=== PATIENT | female | born 1955 | race Caucasian/White ===

== ENCOUNTER 2016-09-29 16:55 | Emergency (ER) | payer BC | END 2016-09-29 19:17 | disposition home or self-care (01) | DX: S93.602A Unspecified sprain of left foot, initial encounter (principal); X58.XXXA Exposure to other specified factors, initial encounter; Z86.711 Personal history of pulmonary embolism; Z86.718 Personal history of other venous thrombosis and embolism; Z79.82 Long term (current) use of aspirin ==

== ENCOUNTER 2016-11-13 14:27 | Outpatient (CLI) | payer BC | END 2016-11-13 14:28 | disposition home or self-care (01) | DX: M89.8X7 Other specified disorders of bone, ankle and foot (principal) ==

== ENCOUNTER 2016-11-25 15:32 | Outpatient (CLI) | payer BC | END 2016-11-25 15:33 | disposition home or self-care (01) | DX: M19.072 Primary osteoarthritis, left ankle and foot (principal); M89.8X7 Other specified disorders of bone, ankle and foot ==

== ENCOUNTER 2016-12-11 17:14 | Outpatient (CLI) | payer BC | END 2016-12-11 17:15 | disposition home or self-care (01) | DX: M19.072 Primary osteoarthritis, left ankle and foot (principal); M84.378A Stress fracture, left toe(s), initial encounter for fracture; X58.XXXA Exposure to other specified factors, initial encounter ==

== ENCOUNTER 2017-01-04 17:44 | Emergency (ER) | payer BC ==
--- NOTE | 2017-01-04 19:28 | ED Physician Documentation ---
PD HPI LOWER EXT INJURY - Stated complaint Stated Complaint: SWOLLEN KNEE - Chief complaint Chief Complaint: Ext Problem - History obtained from History obtained from: Patient - History of Present Illness PD HPI LOW EXT INJURY LOCATION: Left, Knee Type of injury: Twist Timing - onset: Yesterday Timing - details: Abrupt onset (twisted knee as almost fell, and felt pop in knee, with swelling in knee. Hurts for flexing; feels better straight. No locking up nor giving out per se.) Improved by: Rest Worsened by: Moving, Palpating, Other (flexion and weight bearing) Associated symptoms: Weakness Contributing factors: No: Anticoagulated Review of Systems Constitutional: denies: Fever, Chills Skin: denies: Rash, Lesions Neurologic: denies: Focal weakness, Numbness PD PAST MEDICAL HISTORY - Past Medical History Cardiovascular: Deep vein thrombosis, Pulmonary embolism Respiratory: None Neuro: None Endocrine/Autoimmune: None GI: None : None HEENT: None Psych: None Musculoskeletal: Osteoarthritis Derm: None - Past Surgical History Past Surgical History: Yes Ortho: Hip replacement Cardiovascular: Vascular surgery, AAA - Present Medications Home Medications: Ambulatory Orders Medication Instructions Recorded Confirmed Calcium/Magnesium [Calcium with 1 each PO DAILY 02/02/13 12/03/15 Magnesium Tab] Metoprolol Succinate 25 mg PO BID 02/02/13 12/03/15 Multivitamin [Multivitamins] 1 each PO DAILY 02/02/13 12/03/15 Citalopram [CeleXA] 10 mg PO DAILY 02/08/13 12/03/15 Aspirin [Aspir 81] 81 mg PO DAILY 01/30/15 12/03/15 Amlodipine Besylate 5 mg PO DAILY 12/03/15 12/03/15 Lamotrigine [Lamictal] 200 mg PO DAILY 12/03/15 12/03/15 Hydrocodone/Acetaminophen [[place] 1 each PO Q6H PRN #20 tablet 01/04/17 5-325 Tablet] Naproxen [Naprosyn] 500 mg PO BID #20 tablet 01/04/17 - Allergies Allergies/Adverse Reactions: Allergies Allergy/AdvReac Type Severity Reaction Status Date / Time gluten Allergy Intermediate GI Verified 01/30/15 14:12 tomato [Tomato] Allergy Intermediate GI Verified 01/30/15 14:12 zolpidem tartrate * AdvReac Mild too Verified 01/30/15 14:12 [From Ambien] sleepy/groggy EGGPLANT Allergy Intermediate GI Uncoded 01/30/15 14:12 POTATO Allergy Intermediate GI Uncoded 01/30/15 14:12 - Social History Does the pt smoke?: No Smoking Status: Never smoker Does the pt drink ETOH?: Yes Does the pt have substance abuse?: No - Immunizations Immunizations are current?: Yes - POLST Patient has POLST: No PD ED PE NORMAL - Vitals Vital signs reviewed: Yes - General General: Alert and oriented X 3, Well developed/nourished, Other (seems in pain due to left knee. No calf tenderness. ) - HEENT HEENT: Atraumatic - Neck Neck: Supple, no meningeal sign, No bony TTP, No adenopathy - Cardiac Cardiac: RRR, No murmur - Respiratory Respiratory: Clear bilaterally - Derm Derm: Normal color, Warm and dry, No rash - Extremities Extremities: No edema, No calf tenderness / cord, Other (left knee with moderate effusion, no bony tenderness per se. Ligament testing hurts some with most motions, but no focal pain nor laxity. Walking hurts. ) - Neuro Neuro: Alert and oriented X 3, No motor deficit, No sensory deficit, Normal speech Results - Vitals Vitals: Oxygen O2 Source Room air PD MEDICAL DECISION MAKING - ED course Complexity details: considered differential (sounds likely to be meniscal. She has prior Ortho in [place], whom she will see.), d/w patient Departure - Departure Disposition: 01 Home, Self Care Clinical Impression: Knee injury Qualifiers: Encounter type: initial encounter Laterality: left Qualified Code(s): S89.92XA - Unspecified injury of left lower leg, initial encounter Condition: Stable Record reviewed to determine appropriate education?: Yes Instructions: ED Meniscal Injury Knee Poss Prescriptions: Naproxen [Naprosyn] 500 mg PO BID #20 tablet Hydrocodone/Acetaminophen [[place] 5-325 Tablet] 1 each PO Q6H PRN #20 tablet PRN Reason: Pain Comments: This sounds worrisome for cartilage/meniscal injury. There is some arthritic changes on xray but would not typically hurt that abruptly with the swelling. Naproxen or Ibuprofen twice daily for 7-10 days. Add Tylenol or hydrocodone as needed for pains. Knee brace when ambulating to support ligaments/cartilage. Follow up with your Orthopedist in [place] in about a week, call for appt. Discharge Date/Time: 01/04/17 20:28
[2017-01-04] MEDS ORDERED: HYDROcod/ACET 5/325 Prepack 6 PO ONE (19:49)
--- NOTE | 2017-01-04 19:51 | XRAY Preliminary Report ---
Exam: XR Knee 4 View LT IMPRESSION: 1. Tricompartmental osteoarthritis, most pronounced and moderate in the lateral compartment. 2. Small knee effusion. 3. No acute bony abnormality. [facility] SITE ID: [id number]
--- NOTE | 2017-01-04 19:54 | XRAY Report ---
EXAM: LEFT KNEE RADIOGRAPHY EXAM DATE: 01/04/2017 07:26 PM. CLINICAL HISTORY: Left knee swelling COMPARISON: None. TECHNIQUE: 4 views. FINDINGS: Bones: Sclerotic lesion in the distal femoral metaphysis, appearance compatible with enchondroma. No fracture. Joints: Mild to moderate tricompartmental osteophytosis, most pronounced in the lateral compartment. Moderate lateral compartment joint space loss. A small suprapatellar effusion is present. Soft Tissues: No evident focal soft tissue swelling. IMPRESSION: 1. Tricompartmental osteoarthritis, most pronounced and moderate in the lateral compartment. 2. Small knee effusion. 3. No acute bony abnormality. [facility] Referring Provider Line: [phone] SITE ID: [id number]
[2017-01-04] MEDS: HYDROcod/ACET 5/325 Prepack 6 PO ONE (20:13)
[2017-01-04 20:28] VITALS: BP 133/66
== END 2017-01-04 20:28 | disposition home or self-care (01) ==
LOC: ED 17:44
DX: S89.92XA Unspecified injury of left lower leg, initial encounter (principal); X50.0XXA Overexertion from strenuous movement or load, initial encounter; Z86.718 Personal history of other venous thrombosis and embolism; Z86.711 Personal history of pulmonary embolism; M19.90 Unspecified osteoarthritis, unspecified site; Z79.82 Long term (current) use of aspirin
CPT/HCPCS: 99283

== ENCOUNTER 2017-03-09 08:00 | Outpatient (CLI) | payer BC ==
[2017-03-09 22:04] LABS: THYROID STIMULATING HORMONE 0.4 uIU/mL (0.34-5.60)
== END 2017-03-09 08:01 | disposition home or self-care (01) ==
LOC: LAB.F 08:00
PROVIDERS: ATTEND Nurse Practitioner Family
DX: N95.1 Menopausal and female climacteric states (principal); R53.83 Other fatigue
CPT/HCPCS: 36415; 84436; 84439; 84443; 84481; 86376; 86800

== ENCOUNTER 2017-03-27 16:20 | Outpatient (CLI) | payer BC ==
--- NOTE | 2017-03-28 00:49 | XRAY Report ---
EXAM: RIGHT FOOT RADIOGRAPHY EXAM DATE: 03/27/2017 04:31 PM. CLINICAL HISTORY: PAIN. Heel pain COMPARISON: None. TECHNIQUE: 3 views. FINDINGS: Bones: Normal. No fractures or bone lesions. Joints: Mild first metatarsophalangeal osteoarthritis. No subluxations. No calcaneal bone spur. Soft Tissues: Normal. No soft tissue swelling. IMPRESSION: No acute findings. Mild first metatarsophalangeal osteoarthritis. [facility] Referring Provider Line: [phone] SITE ID: [id number]
== END 2017-03-27 16:21 | disposition home or self-care (01) ==
LOC: DI.S 16:20
PROVIDERS: ATTEND Podiatrist
DX: M79.671 Pain in right foot (principal); M19.071 Primary osteoarthritis, right ankle and foot

== ENCOUNTER 2017-04-15 17:07 | Emergency (ER) | payer BC ==
--- NOTE | 2017-04-15 19:43 | ED Physician Documentation ---
PD HPI UPPER EXT INJURY - Stated complaint Stated Complaint: R ARM PX - Chief complaint Chief Complaint: Ext Problem - History obtained from History obtained from: Patient - History of Present Illness Location: Right, Shoulder Type of injury: Other (no particular heavy use nor repetitive motion). No: Fall , Twist Timing - onset: Today Timing - details: Abrupt onset, Still present Worsened by: Moving Associated symptoms: No: Weakness, Numbness, Swelling, Discolored Similar symptoms before: Has not had sx before Recently seen: Not recently seen Review of Systems Constitutional: denies: Fever, Chills Skin: denies: Rash, Lesions PD PAST MEDICAL HISTORY - Past Medical History Cardiovascular: Hypertension, Deep vein thrombosis, Pulmonary embolism Respiratory: None Neuro: None Endocrine/Autoimmune: None GI: None : None HEENT: None Psych: None Musculoskeletal: Osteoarthritis, Fibromyalgia Derm: None Other Past Medical History: 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 - Past Surgical History Past Surgical History: Yes Ortho: Hip replacement Cardiovascular: Vascular surgery, AAA - Present Medications Home Medications: Ambulatory Orders Medication Instructions Recorded Confirmed Calcium/Magnesium [Calcium with 1 each PO DAILY 02/02/13 04/15/17 Magnesium Tab] Metoprolol Succinate 25 mg PO BID 02/02/13 04/15/17 Multivitamin [Multivitamins] 1 each PO DAILY 02/02/13 04/15/17 Citalopram [CeleXA] 60 mg PO DAILY 02/08/13 04/15/17 Aspirin [Aspir 81] 81 mg PO DAILY 01/30/15 04/15/17 Amlodipine Besylate 5 mg PO DAILY 12/03/15 04/15/17 Lamotrigine [Lamictal] 200 mg PO BID 12/03/15 04/15/17 Alprazolam 0.25 mg PO DAILY 04/15/17 04/15/17 Dexamethasone [Decadron] 4 mg PO DAILY #5 tablet 04/15/17 Oxycodone HCl/Acetaminophen 1 each PO Q6H PRN #20 tablet 04/15/17 [Percocet 5-325 mg Tablet] - Allergies Allergies/Adverse Reactions: Allergies Allergy/AdvReac Type Severity Reaction Status Date / Time gluten Allergy Intermediate GI Verified 04/15/17 18:04 tomato [Tomato] Allergy Intermediate GI Verified 04/15/17 18:04 zolpidem tartrate * AdvReac Mild too Verified 04/15/17 18:04 [From Ambien] sleepy/groggy EGGPLANT Allergy Intermediate GI Uncoded 04/15/17 17:15 - Social History Does the pt smoke?: No Smoking Status: Never smoker Does the pt drink ETOH?: Yes Does the pt have substance abuse?: No - Immunizations Immunizations are current?: Yes - POLST Patient has POLST: No PD ED PE NORMAL - Vitals Vital signs reviewed: Yes - General General: Alert and oriented X 3, Well developed/nourished, Other (guarding motion of right shoulder; pain with rotational movements in all directions. ) - HEENT HEENT: Atraumatic - Neck Neck: Supple, no meningeal sign, No adenopathy - Derm Derm: Normal color, Warm and dry, No rash - Extremities Extremities: Other (tender posterior and lateral shoulder. No redness nor warmth. No deformity. Passive ROM is also guarded. ) Results - Vitals Vitals: Oxygen O2 Source Room air PD MEDICAL DECISION MAKING - ED course Complexity details: considered differential (seems like shoulder tendonitis), d/ w patient Departure - Departure Disposition: 01 Home, Self Care Clinical Impression: Tendonitis, Right arm pain Condition: Stable Record reviewed to determine appropriate education?: Yes Instructions: Tendonitis and Tenosynovitis Follow-Up: Chino Haas ARNP [Primary Care Provider] - Prescriptions: Dexamethasone [Decadron] 4 mg PO DAILY #5 tablet Oxycodone HCl/Acetaminophen [Percocet 5-325 mg Tablet] 1 each PO Q6H PRN #20 tablet PRN Reason: Pain Comments: Sling or guarded motion of the shoulder for the next few days until improved. Dexamethasone daily as an anti-inflammatory. Add Tylenol or oxycodone as needed for pain 1-2 every 6 hours. As the pain lessens, do gentle range of motion of the shoulder to keep it from the and stiff. Recheck with primary care if not improved over the next several days. Return or recheck if other symptoms develop with it. Discharge Date/Time: 04/15/17 20:32
[2017-04-15] MEDS ORDERED: KETOROLAC 60 MG/2 ML VIAL IM STA (20:06)
[2017-04-15] MEDS ORDERED: DEXAMETHASONE 10 MG/ML VIAL PO STA (20:06)
[2017-04-15] MEDS ORDERED: KETOROLAC 60 MG/2 ML VIAL ONE (20:13)
[2017-04-15] MEDS ORDERED: DEXAMETHASONE 10 MG/ML VIAL ONE (20:13)
[2017-04-15 20:32] VITALS: BP 146/88
== END 2017-04-15 20:32 | disposition home or self-care (01) ==
LOC: ED 17:07
DX: M75.91 Shoulder lesion, unspecified, right shoulder (principal); I10 Essential (primary) hypertension; M79.7 Fibromyalgia; M19.90 Unspecified osteoarthritis, unspecified site; Z86.718 Personal history of other venous thrombosis and embolism; Z86.711 Personal history of pulmonary embolism; Z79.82 Long term (current) use of aspirin
CPT/HCPCS: 96372; 99283

== ENCOUNTER 2017-04-20 17:15 | Outpatient (CLI) | payer BC | END 2017-04-20 17:16 | disposition short-term general hospital (02) | LOC: EMS 17:15 | PROVIDERS: ATTEND Surgery | DX: R07.9 Chest pain, unspecified (principal) | CPT/HCPCS: A0425; A0427 ==

== ENCOUNTER 2017-06-11 12:39 | Outpatient (CLI) | payer BC ==
[2017-06-11 18:21] LABS: BASOPHILS % (AUTO) 0.5 %; EOSINOPHILS # (AUTO) 0.1 10^3/uL (0.0-0.7); EOSINOPHILS % (AUTO) 2.1 %; HCT - HEMATOCRIT 30.5 % (37.0-47.0); HGB - HEMOGLOBIN 10.1 g/dL (12.0-16.0); LYMPHOCYTES # (AUTO) 0.8 10^3/uL (1.5-3.5); LYMPHOCYTES % (AUTO) 12.7 %; MEAN CORPUSCULAR HGB CONC 33.1 g/dL (32.0-36.0); MEAN CORPUSCULAR VOLUME 87.6 fL (81.0-99.0); MEAN PLATELET VOLUME 8.2 fL (7.9-10.8); MONOCYTES # (AUTO) 0.4 10^3/uL (0.0-1.0); MONOCYTES % (AUTO) 6.6 %; NEUTROPHILS # (AUTO) 4.6 10^3/uL (1.5-6.6); NEUTROPHILS % (AUTO) 78.1 %; NUCLEATED RED BLOOD CELLS AUTO 0.2 /100WBC; RED BLOOD COUNT 3.48 10^6/uL (4.20-5.40); RED CELL DISTRIBUTION WIDTH 15.7 % (12.0-15.0); UNCORRECTED WHITE BLOOD COUNT 5.9 x10^3/uL; WHITE BLOOD COUNT 5.9 x10^3/uL (4.8-10.8)
[2017-06-11 18:43] LABS: ALBUMIN/GLOBULIN RATIO 1.1 (1.0-2.2); CALCIUM 8.9 mg/dL (8.5-10.3); CREATININE 0.7 mg/dL (0.4-1.0); POTASSIUM 3.9 mmol/L (3.5-5.0); TOTAL PROTEIN 6.2 g/dL (6.7-8.2)
== END 2017-06-11 12:40 | disposition home or self-care (01) ==
LOC: LAB.F 12:39
PROVIDERS: ATTEND Nurse Practitioner Family
DX: Z00.00 Encounter for general adult medical examination without abnormal findings (principal); D64.9 Anemia, unspecified; E55.9 Vitamin D deficiency, unspecified; E78.5 Hyperlipidemia, unspecified
CPT/HCPCS: 36415; 80053; 82306; 82728; 83540; 84466; 85025; 85379

== ENCOUNTER 2017-06-17 14:24 | Outpatient (CLI) | payer OTHER ==
[2017-06-17 17:56] LABS: ALBUMIN/GLOBULIN RATIO 0.9 (1.0-2.2); BILIRUBIN,TOTAL 1.8 mg/dL (0.2-1.0); CALCIUM 8.9 mg/dL (8.5-10.3); CREATININE 0.7 mg/dL (0.4-1.0); POTASSIUM 3.3 mmol/L (3.5-5.0); TOTAL PROTEIN 6.5 g/dL (6.7-8.2)
== END 2017-06-17 14:25 | disposition home or self-care (01) ==
LOC: LAB.F 14:24
PROVIDERS: ATTEND Nurse Practitioner Family
DX: R94.5 Abnormal results of liver function studies (principal)
CPT/HCPCS: 36415; 80053; 85379

== ENCOUNTER 2017-07-13 11:15 | Outpatient (CLI) | payer OTHER ==
[2017-07-13 18:51] LABS: ALBUMIN/GLOBULIN RATIO 1.2 (1.0-2.2); BILIRUBIN,TOTAL 0.5 mg/dL (0.2-1.0); CREATININE 0.8 mg/dL (0.4-1.0); POTASSIUM 4.2 mmol/L (3.5-5.0); TOTAL PROTEIN 6.8 g/dL (6.7-8.2)
== END 2017-07-13 11:16 | disposition home or self-care (01) ==
LOC: LAB.F 11:15
PROVIDERS: ATTEND Internal Medicine Cardiovascular Disease
DX: R94.5 Abnormal results of liver function studies (principal); I48.91 Unspecified atrial fibrillation
CPT/HCPCS: 36415; 80053; 82565

== ENCOUNTER 2017-08-13 12:32 | Outpatient (CLI) | payer OTHER ==
[2017-08-13 18:53] LABS: BASOPHILS % (AUTO) 0.7 %; EOSINOPHILS # (AUTO) 0.1 10^3/uL (0.0-0.7); EOSINOPHILS % (AUTO) 2.3 %; HCT - HEMATOCRIT 35.7 % (37.0-47.0); HGB - HEMOGLOBIN 11.6 g/dL (12.0-16.0); LYMPHOCYTES % (AUTO) 17.4 %; MEAN CORPUSCULAR HGB CONC 32.4 g/dL (32.0-36.0); MEAN CORPUSCULAR VOLUME 86.2 fL (81.0-99.0); MEAN PLATELET VOLUME 8.2 fL (7.9-10.8); MONOCYTES # (AUTO) 0.4 10^3/uL (0.0-1.0); MONOCYTES % (AUTO) 6.6 %; NEUTROPHILS # (AUTO) 4.3 10^3/uL (1.5-6.6); RED BLOOD COUNT 4.14 10^6/uL (4.20-5.40); RED CELL DISTRIBUTION WIDTH 15.7 % (12.0-15.0); UNCORRECTED WHITE BLOOD COUNT 5.9 x10^3/uL; WHITE BLOOD COUNT 5.9 x10^3/uL (4.8-10.8)
[2017-08-13 19:10] LABS: ALBUMIN/GLOBULIN RATIO 1.3 (1.0-2.2); BILIRUBIN,TOTAL 0.6 mg/dL (0.2-1.0); CALCIUM 9.1 mg/dL (8.5-10.3); CREATININE 0.7 mg/dL (0.4-1.0); POTASSIUM 4.3 mmol/L (3.5-5.0); TOTAL PROTEIN 6.9 g/dL (6.7-8.2)
[2017-08-13 19:15] LABS: THYROID STIMULATING HORMONE 0.58 uIU/mL (0.34-5.60)
== END 2017-08-13 12:33 | disposition home or self-care (01) ==
LOC: LAB.F 12:32
PROVIDERS: ATTEND Nurse Practitioner Family
DX: Z79.899 Other long term (current) drug therapy (principal); D63.8 Anemia in other chronic diseases classified elsewhere
CPT/HCPCS: 36415; 80053; 84436; 84439; 84443; 84481; 85025; 86376; 86800

== ENCOUNTER 2017-08-14 15:50 | Outpatient (CLI) | payer OTHER ==
[2017-08-14 18:25] LABS: INR 1.4 (0.8-1.2); PT - PROTHROMBIN TIME 15.8 secs (9.9-12.6)
[2017-08-14 18:46] LABS: ALBUMIN 3.8 g/dL (3.2-5.5); ALKALINE PHOSPHATASE 115 IU/L (42-121); ALT ALANINE AMINOTRANSFERASE 20 IU/L (10-60); AST ASPARTATE AMINOTRANSFERASE 28 IU/L (10-42); BILIRUBIN,TOTAL 0.4 mg/dL (0.2-1.0); GAMMA GLUTAMYL TRANSPEPTIDASE 24 IU/L (8-38); TOTAL PROTEIN 6.7 g/dL (6.7-8.2)
[2017-08-14 18:47] LABS: BILIRUBIN,DIRECT < 0.1 mg/dL (0.1-0.5)
== END 2017-08-14 15:51 | disposition home or self-care (01) ==
LOC: LAB.F 15:50
PROVIDERS: ATTEND Internal Medicine
DX: R79.89 Other specified abnormal findings of blood chemistry (principal)
CPT/HCPCS: 36415; 80076; 82977; 85610

== ENCOUNTER 2017-10-06 09:42 | Outpatient (CLI) | payer OTHER ==
--- NOTE | 2017-10-06 17:36 | XRAY Report ---
THREE VIEW CERVICAL SPINE: 10/06/2017 CLINICAL INDICATION: Radiculopathy. FINDINGS: AP, lateral, odontoid views of the cervical spine demonstrate moderate to severe degenerative disk and facet disease. Disk space narrowing is worst at C5-6. There is no evidence of fracture or subluxation. The prevertebral soft tissues are unremarkable. IMPRESSION: MODERATE TO SEVERE DEGENERATIVE DISK AND FACET DISEASE. TD: 10/06/2017 17:32
--- NOTE | 2017-10-06 17:37 | XRAY Report ---
THREE VIEW THORACIC SPINE: 10/06/2017 CLINICAL INDICATION: Radiculopathy, pain. FINDINGS: AP, lateral, swimmer's views of the thoracic spine were obtained. Visualization of the thoracic vertebral bodies is limited by overlying thoracic aortic stent graft. No definite fracture or subluxation is seen. Mild degenerative disk changes are noted. IMPRESSION: MILD DEGENERATIVE CHANGES. NO DEFINITE COMPRESSION FRACTURE IS IDENTIFIED. TD: 10/06/2017 17:34
== END 2017-10-06 09:43 | disposition home or self-care (01) ==
LOC: DI 09:42
PROVIDERS: ATTEND Nurse Practitioner Family
DX: M50.30 Other cervical disc degeneration, unspecified cervical region (principal); M47.892 Other spondylosis, cervical region; M51.34 Other intervertebral disc degeneration, thoracic region
CPT/HCPCS: 72040; 72070

== ENCOUNTER 2017-12-14 12:52 | Outpatient (CLI) | payer OTHER ==
[2017-12-14 18:57] LABS: BASOPHILS % (AUTO) 0.9 %; EOSINOPHILS # (AUTO) 0.1 10^3/uL (0.0-0.7); EOSINOPHILS % (AUTO) 1.7 %; HGB - HEMOGLOBIN 11.8 g/dL (12.0-16.0); LYMPHOCYTES # (AUTO) 1.3 10^3/uL (1.5-3.5); MEAN CORPUSCULAR HEMOGLOBIN 28.5 pg (27.0-31.0); MEAN CORPUSCULAR HGB CONC 32.5 g/dL (32.0-36.0); MEAN CORPUSCULAR VOLUME 87.6 fL (81.0-99.0); MEAN PLATELET VOLUME 8.3 fL (7.9-10.8); MONOCYTES # (AUTO) 0.4 10^3/uL (0.0-1.0); MONOCYTES % (AUTO) 7.9 %; NEUTROPHILS # (AUTO) 3.5 10^3/uL (1.5-6.6); NEUTROPHILS % (AUTO) 65.5 %; PLT - PLATELET COUNT 201 10^3/uL (130-450); RED BLOOD COUNT 4.14 10^6/uL (4.20-5.40); RED CELL DISTRIBUTION WIDTH 16.3 % (12.0-15.0); WHITE BLOOD COUNT 5.4 x10^3/uL (4.8-10.8)
[2017-12-14 19:00] LABS: INR 2.1 (0.8-1.2)
[2017-12-14 19:17] LABS: ALBUMIN 3.8 g/dL (3.2-5.5); ALBUMIN/GLOBULIN RATIO 1.5 (1.0-2.2); BILIRUBIN,TOTAL 0.4 mg/dL (0.2-1.0); CALCIUM 8.6 mg/dL (8.5-10.3); CREATININE 0.8 mg/dL (0.4-1.0); TOTAL PROTEIN 6.3 g/dL (6.7-8.2)
== END 2017-12-14 12:53 | disposition home or self-care (01) ==
LOC: LAB.F 12:52
PROVIDERS: ATTEND Nurse Practitioner Family
DX: R94.5 Abnormal results of liver function studies (principal); R53.82 Chronic fatigue, unspecified
CPT/HCPCS: 36415; 80053; 82977; 85025; 85610

== ENCOUNTER 2018-04-26 11:43 | Outpatient (CLI) | payer MEDICARE, BC ==
[2018-04-26 17:46] LABS: EOSINOPHILS # (AUTO) 0.2 10^3/uL (0.0-0.7); EOSINOPHILS % (AUTO) 3.3 %; HGB - HEMOGLOBIN 12.5 g/dL (12.0-16.0); LYMPHOCYTES # (AUTO) 1.5 10^3/uL (1.5-3.5); LYMPHOCYTES % (AUTO) 30.2 %; MEAN CORPUSCULAR HEMOGLOBIN 30.9 pg (27.0-31.0); MEAN CORPUSCULAR HGB CONC 34.1 g/dL (32.0-36.0); MEAN CORPUSCULAR VOLUME 90.7 fL (81.0-99.0); MEAN PLATELET VOLUME 8.3 fL (7.9-10.8); MONOCYTES # (AUTO) 0.4 10^3/uL (0.0-1.0); MONOCYTES % (AUTO) 8.3 %; NEUTROPHILS # (AUTO) 2.8 10^3/uL (1.5-6.6); NEUTROPHILS % (AUTO) 57.2 %; PLT - PLATELET COUNT 178 10^3/uL (130-450); RED BLOOD COUNT 4.05 10^6/uL (4.20-5.40); RED CELL DISTRIBUTION WIDTH 14.3 % (12.0-15.0); WHITE BLOOD COUNT 4.9 x10^3/uL (4.8-10.8)
[2018-04-26 18:56] LABS: ALBUMIN/GLOBULIN RATIO 1.7 (1.0-2.2); ALKALINE PHOSPHATASE 67 IU/L (42-121); ALT ALANINE AMINOTRANSFERASE 21 IU/L (10-60); AST ASPARTATE AMINOTRANSFERASE 24 IU/L (10-42); BILIRUBIN,TOTAL 0.9 mg/dL (0.2-1.0); BUN - BLOOD UREA NITROGEN 9 mg/dL (6-20); CALCIUM 9.2 mg/dL (8.5-10.3); CARBON DIOXIDE - CO2 26 mmol/L (21-32); CHLORIDE 101 mmol/L (101-111); CHOL/HDL RATIO 2.8 (<4.4); CHOLESTEROL 168 mg/dL; CREATININE 0.8 mg/dL (0.4-1.0); GFR - MDRD 72 (>89); GLUCOSE 85 mg/dL (70-100); HDL CHOLESTEROL 60 mg/dL; SODIUM 133 mmol/L (135-145); TOTAL PROTEIN 6.4 g/dL (6.7-8.2)
[2018-04-26 19:16] LABS: LDL CHOLESTEROL,DIRECT 95 mg/dL; LDLD/HDL RATIO 1.6 (<4.4)
== END 2018-04-26 11:44 | disposition home or self-care (01) ==
LOC: LAB.F 11:43
PROVIDERS: ATTEND Nurse Practitioner Family
DX: I70.90 Unspecified atherosclerosis (principal); Z13.220 Encounter for screening for lipoid disorders; E05.90 Thyrotoxicosis, unspecified without thyrotoxic crisis or storm; E03.9 Hypothyroidism, unspecified
CPT/HCPCS: 36415; 80053; 80061; 83721; 84443; 85025

== ENCOUNTER 2018-05-03 14:59 | Outpatient (CLI) | payer MEDICARE, BC ==
--- NOTE | 2018-05-03 17:29 | Ultrasound Report ---
Reason: VISUAL CHANGES Procedure Date: 05/03/2018 Accession Number: [id number] / [id number] Procedure: US - Carotid Doppler Complete CPT Code: FULL RESULT: EXAM: BILATERAL CAROTID AND VERTEBRAL ARTERY DUPLEX DOPPLER ULTRASOUND: EXAM DATE: 05/03/2018 03:58 PM CLINICAL HISTORY: VISUAL CHANGES. COMPARISON: None. TECHNIQUE: Grayscale imaging, color Doppler, and duplex spectral Doppler were used to evaluate the carotid and vertebral arteries bilaterally. Static images were obtained. FINDINGS: No significant plaque is identified in the right or left common or internal carotid arteries. Patient has undergone bilateral common carotid bypass grafting. There is reversal of left vertebral artery direction of flow. VELOCITIES (cm/sec): Transcription to insert worksheet here ICA diameter stenosis: Right: <50% by velocity and <70% by NASCET criteria. Left: <50% by velocity and <70% by NASCET criteria. IMPRESSION: 1. Patient has undergone bilateral common carotid bypass grafting. 2. There is no sonographic evidence of hemodynamically significant internal carotid artery stenosis. 3. There is reversal of the left vertebral artery flow, away from the head. This could represent subclavian steal secondary to severe proximal left subclavian artery stenosis. General Recommendations: Stenosis =50% ICA - Follow-up ultrasound 6-12 months Stenosis <50% ICA - High Risk Patient with plaque - Follow-up ultrasound 1-2 years Normal Study but High Risk Patient - Follow-up ultrasound 3-5 years Management recommendations and diagnostic criteria are based on current IAC endorsed standards in Carotid Artery Stenosis: Grayscale and Doppler Ultrasound Diagnosis. Validated velocity measurements with angiographic measurements and velocity criteria are extrapolated from diameter data as defined by the Society of Radiologists in Ultrasound Consensus Conference Radiology 2003; 229;340-346. [facility] The above findings were discussed with Dr Triplett by Dr. Shan Martínez at 17:28 hrs on 05/03/18.
== END 2018-05-03 15:00 | disposition home or self-care (01) ==
LOC: DI 14:59
PROVIDERS: ATTEND Nurse Practitioner Family
DX: H53.9 Unspecified visual disturbance (principal)
CPT/HCPCS: 93880

== ENCOUNTER 2018-09-09 11:09 | Outpatient (CLI) | payer MEDICARE, BC ==
[2018-09-09 18:52] LABS: CALCIUM 8.8 mg/dL (8.5-10.3); CREATININE 0.9 mg/dL (0.4-1.0)
== END 2018-09-09 11:10 | disposition home or self-care (01) ==
LOC: LAB.F 11:09
PROVIDERS: ATTEND Internal Medicine Cardiovascular Disease
DX: I71.1 Thoracic aortic aneurysm, ruptured (principal); I10 Essential (primary) hypertension
CPT/HCPCS: 36415; 80048

== ENCOUNTER 2018-09-29 13:05 | Outpatient (CLI) | payer MEDICARE, BC ==
[2018-09-29 18:20] LABS: BILIRUBIN,URINE NEGATIVE (NEGATIVE); GLUCOSE, URINE (UA) NEGATIVE (NEGATIVE); KETONES,URINE (UA) NEGATIVE (NEGATIVE); LEUKOCYTE ESTERASE, URINE NEGATIVE (NEGATIVE); NITRITE,URINE NEGATIVE (NEGATIVE); OCCULT BLOOD,URINE NEGATIVE (NEGATIVE); PROTEIN,URINE NEGATIVE (NEGATIVE); UROBILINOGEN,URINE 0.2 (NORMAL) E.U./dL (NORMAL)
[2018-09-29 18:23] LABS: CLARITY,URINE CLEAR (CLEAR)
[2018-09-29 18:32] LABS: BACTERIA,URINE None Seen /HPF (None Seen); RBC,URINE None Seen /HPF (0-5); SQUAMOUS EPITHELIAL CELL,UR NONE SEEN (<= Few)
== END 2018-09-29 23:59 | disposition home or self-care (01) ==
LOC: LAB.R 13:05
PROVIDERS: ATTEND Nurse Practitioner Family
DX: R10.2 Pelvic and perineal pain (principal)
CPT/HCPCS: 81001; 87086

== ENCOUNTER 2018-10-19 12:57 | Outpatient (CLI) | payer MEDICARE, BC ==
--- NOTE | 2018-10-20 08:21 | Ultrasound Report ---
Reason: VAGINAL PAIN Procedure Date: 10/19/2018 Accession Number: [id number] / [id number] Procedure: US - Pelvic Complete CPT Code: FULL RESULT: EXAM: PELVIC ULTRASOUND EXAM DATE: 10/19/2018 02:00 PM. CLINICAL HISTORY: Vaginal pain. COMPARISON: 10/19/2018 2:11 PM. TECHNIQUE: Real-time transabdominal pelvic scan performed to identify the uterus and adnexa and as an overview of other pelvic structures, with static image documentation. FINDINGS: Uterus: 7.7 x 2.8 x 3.7 cm, volume 41.7 cc. Anteverted position. No mass. Incidental nonshadowing 0.4 cm superior uterine echogenic focus could represent a small calcification. Masses: None. Endometrium: 3 mm. No endometrial mass or polyp. Cervix: Unremarkable. Right Ovary: 1.5 x 1.3 x 1.4 cm, volume 1.4 cc. Normal echotexture and blood flow. Left Ovary: 2.3 x 1.5 x 1.4 cm, volume 2.5 cc. Normal echotexture and blood flow. Free Fluid: None. Other: Evaluation of the adnexa is limited due to bowel gas and peristalsing bowel. IMPRESSION: 1. Mildly limited study due to peristalsing bowel and bowel gas. 2. Given the limitations, both ovaries and adnexa are normal. 3. No uterine mass. Endometrium measures 3 mm. No focal lesion. [facility]
== END 2018-10-19 12:58 | disposition home or self-care (01) ==
LOC: DI 12:57
PROVIDERS: ATTEND Nurse Practitioner Family
DX: R10.2 Pelvic and perineal pain (principal)
CPT/HCPCS: 76856

== ENCOUNTER 2018-11-18 22:23 | Outpatient (CLI) | payer MEDICARE, BC | END 2018-11-18 22:24 | disposition short-term general hospital (02) | LOC: EMS 22:23 | PROVIDERS: ATTEND Surgery | DX: R07.9 Chest pain, unspecified (principal); R06.02 Shortness of breath | CPT/HCPCS: A0425; A0427 ==

== ENCOUNTER 2019-03-24 14:58 | Outpatient (CLI) | payer MEDICARE, BC ==
--- NOTE | 2019-03-25 08:43 | DEXA Report ---
Reason: Asymptomatic menopausal state Procedure Date: 03/24/2019 Accession Number: [id number] / [id number] Procedure: DEX - Dexa Forearm CPT Code: FULL RESULT: EXAM: Dexa Spine and/or Hip, Dexa Forearm DATE: 03/24/2019 4:12 PM CLINICAL HISTORY: ASYMPTOMATIC MENOPAUSAL STATE TECHNIQUE: Dual energy x-ray absorptiometry (DXA) was performed on a [employer] System. Regions measured are the AP Spine, femoral neck, and if needed forearm. COMPARISON: None. In accordance with the International Society for Clinical Densitometry (ISCD) guidelines, data from previous exams may be reanalyzed using current recommendations and techniques. This is done to allow a more accurate basis for comparison with the current study. FINDINGS: The data for the lumbar spine is as follows: BMD (g/cm/cm) T-SCORE Z-SCORE REGION L1 0.904 -1.9 -0.6 L2 0.963 -2.0 -0.7 L3 1.126 -0.6 0.7 L4 1.101 -0.8 0.5 TOTAL 1.034 -1.2 0.1 NOTE: All evaluable vertebrae are used for classification The data for the left forearm is as follows: BMD (g/cm/cm) T-SCORE Z-SCORE REGION 1/3 0.651 -2.6 -1.1 NOTE: The 33% radius of the nondominant forearm is used for classification. DXA RESULTS SUMMARY: Spine SCAN DATE AGE BMD CHANGE VS CHANGE VS PREVIOUS PREVIOUS % [birth year]24[birth year]2019 [age] 1.034 0.003 0.3 05[birth year]2016 61.2 1.031 * Denotes significant change at the 95% confidence level. Denotes dissimilar scan types or analysis methods. DXA RESULTS SUMMARY: Forearm SCAN DATE AGE BMD CHANGE VS CHANGE VS PREVIOUS PREVIOUS % [birth year]2019 64.0 0.651 -0.092* -12.4* [birth year]2016 61.2 0.743 * Denotes significant change at the 95% confidence level. Denotes dissimilar scan types or analysis methods. IMPRESSION: THE WHO CLASSIFICATION BASED ON THE INTERNATIONAL REFERENCE STANDARD IS OSTEOPOROSIS. THE FRACTURE RISK IS HIGH. RECOMMENDATION: Patients with diagnosis of osteoporosis or osteopenia should have regular bone mineral density assessment. For those eligible for Medicare, routine testing is allowed once every 2 years. Testing frequency can be increased for patients who have rapidly progressing disease or for those who are receiving medical therapy to restore bone mass. COMMENT: World Health Organization (WHO) definitions for osteoporosis and osteopenia: NORMAL BMD: T-score at -1.0 or higher, fracture risk is low OSTEOPENIA BMD: T-score between -1.0 and -2.5, fracture risk is increased. OSTEOPOROSIS BMD: T-score at -2.5 or lower, fracture risk is high. National Osteoporosis Foundation recommends: 1. Obtain adequate dietary calcium (at least 1200 mg per day) and vitamin D (400-800 international units per day). 2. Participate, as appropriate, in regular weightbearing and muscle-strengthening exercise. 3. Avoid tobacco use and reduce alcohol and caffeine intake. 4. For more detailed information see the website at www.NOF.org.
--- NOTE | 2019-03-25 08:43 | DEXA Report ---
Reason: ASYMPTOMATIC MENOPAUSAL STATE Procedure Date: 03/24/2019 Accession Number: [id number] / [id number] Procedure: DEX - Dexa Spine and/or Hip CPT Code: FULL RESULT: EXAM: Dexa Spine and/or Hip, Dexa Forearm DATE: 03/24/2019 4:12 PM CLINICAL HISTORY: ASYMPTOMATIC MENOPAUSAL STATE TECHNIQUE: Dual energy x-ray absorptiometry (DXA) was performed on a [employer] System. Regions measured are the AP Spine, femoral neck, and if needed forearm. COMPARISON: None. In accordance with the International Society for Clinical Densitometry (ISCD) guidelines, data from previous exams may be reanalyzed using current recommendations and techniques. This is done to allow a more accurate basis for comparison with the current study. FINDINGS: The data for the lumbar spine is as follows: BMD (g/cm/cm) T-SCORE Z-SCORE REGION L1 0.904 -1.9 -0.6 L2 0.963 -2.0 -0.7 L3 1.126 -0.6 0.7 L4 1.101 -0.8 0.5 TOTAL 1.034 -1.2 0.1 NOTE: All evaluable vertebrae are used for classification The data for the left forearm is as follows: BMD (g/cm/cm) T-SCORE Z-SCORE REGION 1/3 0.651 -2.6 -1.1 NOTE: The 33% radius of the nondominant forearm is used for classification. DXA RESULTS SUMMARY: Spine SCAN DATE AGE BMD CHANGE VS CHANGE VS PREVIOUS PREVIOUS % [birth year]24/2019 64.0 1.034 0.003 0.3 [birth year]2016 61.2 1.031 * Denotes significant change at the 95% confidence level. Denotes dissimilar scan types or analysis methods. DXA RESULTS SUMMARY: Forearm SCAN DATE AGE BMD CHANGE VS CHANGE VS PREVIOUS PREVIOUS % [birth year]24/2019 64.0 0.651 -0.092* -12.4* [birth year]/2016 61.2 0.743 * Denotes significant change at the 95% confidence level. Denotes dissimilar scan types or analysis methods. IMPRESSION: THE WHO CLASSIFICATION BASED ON THE INTERNATIONAL REFERENCE STANDARD IS OSTEOPOROSIS. THE FRACTURE RISK IS HIGH. RECOMMENDATION: Patients with diagnosis of osteoporosis or osteopenia should have regular bone mineral density assessment. For those eligible for Medicare, routine testing is allowed once every 2 years. Testing frequency can be increased for patients who have rapidly progressing disease or for those who are receiving medical therapy to restore bone mass. COMMENT: World Health Organization (WHO) definitions for osteoporosis and osteopenia: NORMAL BMD: T-score at -1.0 or higher, fracture risk is low OSTEOPENIA BMD: T-score between -1.0 and -2.5, fracture risk is increased. OSTEOPOROSIS BMD: T-score at -2.5 or lower, fracture risk is high. National Osteoporosis Foundation recommends: 1. Obtain adequate dietary calcium (at least 1200 mg per day) and vitamin D (400-800 international units per day). 2. Participate, as appropriate, in regular weightbearing and muscle-strengthening exercise. 3. Avoid tobacco use and reduce alcohol and caffeine intake. 4. For more detailed information see the website at www.NOF.org.
== END 2019-03-24 14:59 | disposition home or self-care (01) ==
LOC: DI 14:58
PROVIDERS: ATTEND Family Medicine
DX: M81.0 Age-related osteoporosis without current pathological fracture (principal)
CPT/HCPCS: 77080; 77081

== ENCOUNTER 2019-05-05 08:24 | Outpatient (CLI) | payer MEDICARE, BC ==
--- NOTE | 2019-05-09 10:53 | Ultrasound Report ---
Reason: HISTORY OF REPAIR OF THORACIC AORTIC ANEURYSM Procedure Date: 05/05/2019 Accession Number: [id number] / [id number] Procedure: US - Retroperitoneal Limited CPT Code: FULL RESULT: EXAM: AORTIC DOPPLER ULTRASOUND EXAM DATE: 05/05/2019 09:30 AM. CLINICAL HISTORY: History of repair of thoracic aortic aneurysm. COMPARISON: 05/05/2019 9:34 AM. TECHNIQUE: Real-time sonographic imaging of retroperitoneal vascular structures, including color-flow, Doppler flow and spectral analysis was performed by the cafe site attendant. Multiple marketing representative static images were saved for review. FINDINGS: Aorta: Abdominal aorta is adequately visualized. This echogenic atherosclerotic disease throughout. Ultrasound appearance is that of a stent graft ending superior to the takeoff of the celiac artery. Aorta: Proximal: Sagittal AP 3.6 cm. Mid: Transverse 2.8 x 3.0 cm. Distal: Transverse 2.1 x 2.3 cm. Caliber: WNL: Yes. Plaque visualized: No. Iliacs: Right Iliac: Transverse 1.4 x 1.7 cm. Left Iliac: Transverse 1.3 x 1.4 cm. Iliac Vessels: Visualized iliac arteries are normal in caliber. Other: None. IMPRESSION: Atherosclerotic aorta with distal end of the thoracic stent graft above the celiac artery, prominent caliber of the upper abdominal aorta but no infrarenal abdominal aortic aneurysm. [facility]
== END 2019-05-05 08:25 | disposition home or self-care (01) ==
LOC: DI 08:24
PROVIDERS: ATTEND Family Medicine
DX: I70.0 Atherosclerosis of aorta (principal)
CPT/HCPCS: 76775

== ENCOUNTER 2019-05-31 14:28 | Outpatient (CLI) | payer MEDICARE, BC | END 2019-05-31 14:29 | disposition short-term general hospital (02) | LOC: EMS 14:28 | PROVIDERS: ATTEND Surgery | DX: R29.810 Facial weakness (principal); R47.81 Slurred speech; R19.8 Other specified symptoms and signs involving the digestive system and abdomen | CPT/HCPCS: A0425; A0429 ==

== ENCOUNTER 2019-09-06 14:18 | Outpatient (CLI) | payer MEDICARE, BC | END 2019-09-06 14:19 | disposition home or self-care (01) | LOC: LAB.S 14:18 | PROVIDERS: ATTEND Family Medicine | DX: Z79.01 Long term (current) use of anticoagulants (principal) | CPT/HCPCS: 85610 ==

== ENCOUNTER 2019-09-09 13:20 | Outpatient (CLI) | payer MEDICARE, BC | END 2019-09-09 13:21 | disposition home or self-care (01) | LOC: LAB.S 13:20 | PROVIDERS: ATTEND Family Medicine | DX: Z79.01 Long term (current) use of anticoagulants (principal) | CPT/HCPCS: 85610 ==

== ENCOUNTER 2019-09-12 12:46 | Outpatient (CLI) | payer MEDICARE, BC | END 2019-09-12 12:47 | disposition home or self-care (01) | LOC: LAB.S 12:46 | PROVIDERS: ATTEND Family Medicine | DX: Z79.01 Long term (current) use of anticoagulants (principal) | CPT/HCPCS: 85610 ==

== ENCOUNTER 2019-09-16 14:27 | Outpatient (CLI) | payer MEDICARE, BC | END 2019-09-16 14:28 | disposition home or self-care (01) | LOC: LAB.S 14:27 | PROVIDERS: ATTEND Family Medicine | DX: Z79.01 Long term (current) use of anticoagulants (principal) | CPT/HCPCS: 85610 ==

== ENCOUNTER 2019-09-26 12:31 | Outpatient (CLI) | payer MEDICARE, BC | END 2019-09-26 12:32 | disposition home or self-care (01) | LOC: LAB.S 12:31 | PROVIDERS: ATTEND Family Medicine | DX: Z79.01 Long term (current) use of anticoagulants (principal) | CPT/HCPCS: 85610 ==

== ENCOUNTER 2019-09-27 09:28 | Outpatient (CLI) | payer MEDICARE, BC ==
--- NOTE | 2019-09-28 10:04 | XRAY Report ---
Reason: PAIN IN LEFT KNEE Procedure Date: 09/27/2019 Accession Number: [id number] / [id number] Procedure: XRS - Knee 3 View LT CPT Code: Final Report FULL RESULT: EXAM: LEFT KNEE RADIOGRAPHY EXAM DATE: 09/27/2019 09:46 AM. CLINICAL HISTORY: Pain in left knee. COMPARISON: KNEE 4 VIEW LT 01/04/2017 7:15 PM. TECHNIQUE: 3 views. FINDINGS: Bones: No fracture. Irregular sclerotic lesion with chondroid matrix in the distal femoral metadiaphysis is unchanged from prior, most consistent with enchondroma. Joints: Mild medial and lateral compartment joint space narrowing. Tricompartmental marginal osteophytes. Small amount of fluid in the suprapatellar recess. Soft Tissues: Unremarkable. IMPRESSION: 1. Mild to moderate tricompartmental osteoarthritis. [facility]
== END 2019-09-27 09:29 | disposition home or self-care (01) ==
LOC: DI.S 09:28
PROVIDERS: ATTEND Family Medicine
DX: M17.12 Unilateral primary osteoarthritis, left knee (principal)

== ENCOUNTER 2019-10-06 10:41 | Outpatient (CLI) | payer MEDICARE, BC | END 2019-10-06 10:42 | disposition home or self-care (01) | LOC: LAB.S 10:41 | PROVIDERS: ATTEND Family Medicine | DX: Z79.01 Long term (current) use of anticoagulants (principal) | CPT/HCPCS: 85610 ==

== ENCOUNTER 2019-10-13 13:09 | Outpatient (CLI) | payer MEDICARE, BC | END 2019-10-13 13:10 | disposition home or self-care (01) | LOC: LAB.S 13:09 | PROVIDERS: ATTEND Family Medicine | DX: Z79.01 Long term (current) use of anticoagulants (principal) | CPT/HCPCS: 85610 ==

== ENCOUNTER 2019-10-20 12:29 | Outpatient (CLI) | payer MEDICARE, BC | END 2019-10-20 23:59 | disposition home or self-care (01) | LOC: LAB.S 12:29 | PROVIDERS: ATTEND Family Medicine | DX: Z79.01 Long term (current) use of anticoagulants (principal) | CPT/HCPCS: 85610 ==

== ENCOUNTER 2019-10-26 11:10 | Outpatient (CLI) | payer MEDICARE, BC | END 2019-10-26 11:11 | disposition short-term general hospital (02) | LOC: EMS 11:10 | PROVIDERS: ATTEND Surgery | DX: R09.89 Other specified symptoms and signs involving the circulatory and respiratory systems (principal); R07.9 Chest pain, unspecified | CPT/HCPCS: A0425; A0427 ==

== ENCOUNTER 2019-10-27 13:37 | Outpatient (CLI) | payer MEDICARE, BC | END 2019-10-27 13:38 | disposition home or self-care (01) | LOC: LAB.S 13:37 | PROVIDERS: ATTEND Family Medicine | DX: Z79.01 Long term (current) use of anticoagulants (principal) | CPT/HCPCS: 85610 ==

== ENCOUNTER 2019-11-07 08:00 | Outpatient (CLI) | payer MEDICARE, BC | END 2019-11-07 23:59 | disposition home or self-care (01) | LOC: LAB.S 08:00 | PROVIDERS: ATTEND Family Medicine | DX: Z79.01 Long term (current) use of anticoagulants (principal) | CPT/HCPCS: 85610 ==

== ENCOUNTER 2019-11-25 11:03 | Outpatient (CLI) | payer MEDICARE, BC ==
[2019-11-25 13:01] LABS: INR 1.4 (0.8-1.2); PT - PROTHROMBIN TIME 15.9 secs (9.9-12.6)
== END 2019-11-25 23:59 | disposition home or self-care (01) ==
LOC: LAB.WCP 11:03
PROVIDERS: ATTEND Family Medicine
DX: Z79.01 Long term (current) use of anticoagulants (principal)
CPT/HCPCS: 36415; 85610

== ENCOUNTER 2019-12-08 12:32 | Outpatient (CLI) | payer MEDICARE, BC ==
[2019-12-08 17:53] LABS: INR 2.3 (0.8-1.2); PT - PROTHROMBIN TIME 25.1 secs (9.9-12.6)
== END 2019-12-08 23:59 | disposition home or self-care (01) ==
LOC: LAB.WCP 12:32
PROVIDERS: ATTEND Family Medicine
DX: Z79.01 Long term (current) use of anticoagulants (principal)
CPT/HCPCS: 36415; 85610

== ENCOUNTER 2019-12-30 16:04 | Outpatient (CLI) | payer MEDICARE, BC | END 2019-12-30 16:05 | disposition home or self-care (01) | LOC: LAB 16:04 | PROVIDERS: ATTEND Family Medicine | DX: Z79.01 Long term (current) use of anticoagulants (principal) | CPT/HCPCS: 85610 ==

== ENCOUNTER 2020-01-17 15:36 | Outpatient (CLI) | payer MEDICARE, BC | END 2020-01-17 15:37 | disposition home or self-care (01) | LOC: LAB.S 15:36 | PROVIDERS: ATTEND Family Medicine | DX: Z79.01 Long term (current) use of anticoagulants (principal) | CPT/HCPCS: 85610 ==

== ENCOUNTER 2020-02-22 15:57 | Outpatient (CLI) | payer MEDICARE, BC | END 2020-02-22 15:58 | disposition home or self-care (01) | LOC: LAB.S 15:57 | PROVIDERS: ATTEND Family Medicine | DX: Z79.01 Long term (current) use of anticoagulants (principal) | CPT/HCPCS: 85610 ==

== ENCOUNTER 2020-03-14 11:27 | Outpatient (CLI) | payer MEDICARE, BC | END 2020-03-14 11:28 | disposition home or self-care (01) | LOC: LAB.S 11:27 | PROVIDERS: ATTEND Family Medicine | DX: Z79.01 Long term (current) use of anticoagulants (principal) | CPT/HCPCS: 85610 ==

== ENCOUNTER 2020-03-28 09:21 | Outpatient (CLI) | payer MEDICARE, BC | END 2020-03-28 09:22 | disposition home or self-care (01) | LOC: LAB.S 09:21 | PROVIDERS: ATTEND Family Medicine | DX: Z79.01 Long term (current) use of anticoagulants (principal) | CPT/HCPCS: 85610 ==

== ENCOUNTER 2020-04-18 12:25 | Outpatient (CLI) | payer MEDICARE, BC | END 2020-04-18 12:26 | disposition home or self-care (01) | LOC: LAB.S 12:25 | PROVIDERS: ATTEND Family Medicine | DX: Z79.01 Long term (current) use of anticoagulants (principal) | CPT/HCPCS: 85610 ==

== ENCOUNTER 2020-04-20 10:54 | Outpatient (CLI) | payer MEDICARE, BC ==
[2020-04-20 11:23] LABS: CALCIUM 8.7 mg/dL (8.5-10.3); CREATININE 0.8 mg/dL (0.4-1.0)
== END 2020-04-20 10:55 | disposition home or self-care (01) ==
LOC: LAB 10:54
PROVIDERS: ATTEND Internal Medicine Cardiovascular Disease
DX: I50.9 Heart failure, unspecified (principal); I48.91 Unspecified atrial fibrillation
CPT/HCPCS: 36415; 80048; 83880; 93005

== ENCOUNTER 2020-05-10 11:51 | Outpatient (CLI) | payer MEDICARE, BC ==
[2020-05-10 12:15] LABS: ALBUMIN/GLOBULIN RATIO 1.4 (1.0-2.2); CALCIUM 9.1 mg/dL (8.5-10.3); CREATININE 0.7 mg/dL (0.4-1.0); TOTAL PROTEIN 6.8 g/dL (6.7-8.2)
== END 2020-05-10 11:52 | disposition home or self-care (01) ==
LOC: LAB 11:51
PROVIDERS: ATTEND Internal Medicine Cardiovascular Disease
DX: I50.9 Heart failure, unspecified (principal)
CPT/HCPCS: 36415; 80053

== ENCOUNTER 2020-05-25 15:36 | Outpatient (CLI) | payer MEDICARE, BC | END 2020-05-25 15:37 | disposition home or self-care (01) | LOC: LAB.S 15:36 | PROVIDERS: ATTEND Family Medicine | DX: Z79.01 Long term (current) use of anticoagulants (principal) | CPT/HCPCS: 85610 ==

== ENCOUNTER 2020-07-02 15:29 | Outpatient (CLI) | payer MEDICARE, BC ==
[2020-07-02 20:07] LABS: CALCIUM 9.2 mg/dL (8.5-10.3); CREATININE 0.8 mg/dL (0.4-1.0)
== END 2020-07-02 15:30 | disposition home or self-care (01) ==
LOC: LAB.S 15:29
PROVIDERS: ATTEND Internal Medicine Cardiovascular Disease
DX: Z79.01 Long term (current) use of anticoagulants (principal); I10 Essential (primary) hypertension
CPT/HCPCS: 36415; 80048; 85610

== ENCOUNTER 2020-07-13 12:16 | Outpatient (CLI) | payer MEDICARE, BC | END 2020-07-13 12:17 | disposition home or self-care (01) | LOC: LAB.S 12:16 | PROVIDERS: ATTEND Family Medicine | DX: Z79.01 Long term (current) use of anticoagulants (principal) | CPT/HCPCS: 85610 ==

== ENCOUNTER 2020-07-24 13:26 | Outpatient (CLI) | payer MEDICARE, BC | END 2020-07-24 13:27 | disposition home or self-care (01) | LOC: LAB.S 13:26 | PROVIDERS: ATTEND Family Medicine | DX: Z79.01 Long term (current) use of anticoagulants (principal) | CPT/HCPCS: 85610 ==

== ENCOUNTER 2020-08-07 11:26 | Outpatient (CLI) | payer MEDICARE, BC | END 2020-08-07 11:27 | disposition home or self-care (01) | LOC: LAB.S 11:26 | PROVIDERS: ATTEND Family Medicine | DX: Z79.01 Long term (current) use of anticoagulants (principal) | CPT/HCPCS: 85610 ==

== ENCOUNTER 2020-08-13 14:38 | Outpatient (CLI) | payer MEDICARE, BC | END 2020-08-13 14:39 | disposition short-term general hospital (02) | LOC: EMS 14:38 | PROVIDERS: ATTEND Surgery | DX: R07.9 Chest pain, unspecified (principal) | CPT/HCPCS: A0425; A0427 ==

== ENCOUNTER 2020-10-02 14:03 | Outpatient (CLI) | payer MEDICARE, BC ==
--- NOTE | 2020-10-04 05:18 | Mammography Report ---
BILATERAL DIGITAL SCREENING MAMMOGRAM 3D/2D WITH EXAGGERATED CC: 10/02/2020 CLINICAL: Routine screening. Comparison is made to exams dated: 08/16/2014 mammogram and 10/13/2011 mammogram - [facility]. There are scattered fibroglandular elements in both breasts. No significant masses, calcifications, or other findings are seen in either breast. There has been no significant interval change. IMPRESSION: NEGATIVE There is no mammographic evidence of malignancy. A 1 year screening mammogram is recommended. This exam was interpreted at Station ID: [id number]. NOTE: For mammograms, a report in lay terms will be sent to the patient. Approximately 15% of breast malignancies will not be visualized mammographically. In the management of a palpable breast mass, a negative mammogram must not discourage biopsy of a clinically suspicious lesion. Electronically Signed By: Jerome Lacey M.D. ar/penrad:10/02/2020 14:38:02 ACR BI-RADS Category 1: Negative 3341F PARENCHYMAL PATTERN: (A) - The breast(s) demonstrate(s) scattered fibroglandular densities. BI-RADS CATEGORY: (1) - 1 RECOMMENDATION: (ANNUAL) - Recommend routine annual screening mammography. [id number] 1 year screening LATERALITY: (B)
== END 2020-10-02 14:04 | disposition home or self-care (01) ==
LOC: DI.S 14:03
PROVIDERS: ATTEND Nurse Practitioner Family
DX: Z12.31 Encounter for screening mammogram for malignant neoplasm of breast (principal)

== ENCOUNTER 2021-04-08 14:49 | Outpatient (CLI) | payer MEDICARE, BC ==
--- NOTE | 2021-04-08 15:27 | XRAY Report ---
PROCEDURE: Lumbar Spine Complete INDICATIONS: LUMBAGO WITH SCIATICA RT SIDE TECHNIQUE: 5 views of the lumbar spine were acquired. COMPARISON: Thoracic spine plain films 10/06/2017 FINDINGS: Bones: 5 hos-lnt-kydqdkq vertebrae are present. There is normal bony alignment except slight sparkle listhesis of L4 on L5 is seen on the lateral view secondary to degenerative disc height reduction, fa cet osteoarthritis and ligamentous laxity.. No vertebral body compression fractures. No suspicious bony lesions. Soft tissues: Overlying bowel gas pattern is normal. No suspicious soft tissue calcifications. A v ascular aortic stent extends from the upper imaging margin into the area of the thoracolumbar junctio n. IMPRESSION: The degenerative disc disease along the lumbosacral spine is mild to moderate in overall severity and most prominent at L4-5 and L5-S1. Facet osteoarthritis becomes progressively more promi nent from L3 through S1 in this allows ligamentous laxity and slight grade 1 anterolisthesis of L4 on L5. No compression fracture found. Reviewed by: Alonso Reid MD on 04/08/2021 3:25 PM PDT Approved by: Alonso Reid MD on 04/08/2021 3:25 PM PDT Station ID: [id number]
== END 2021-04-08 14:50 | disposition home or self-care (01) ==
LOC: DI.S 14:49
PROVIDERS: ATTEND Nurse Practitioner Family
DX: M51.36 Other intervertebral disc degeneration, lumbar region (principal); M51.37 Other intervertebral disc degeneration, lumbosacral region; M47.816 Spondylosis without myelopathy or radiculopathy, lumbar region; M47.817 Spondylosis without myelopathy or radiculopathy, lumbosacral region; M43.16 Spondylolisthesis, lumbar region

== ENCOUNTER 2021-11-13 15:05 | Outpatient (CLI) | payer MEDICARE, BC ==
--- NOTE | 2021-11-13 17:07 | XRAY Report ---
PROCEDURE: Foot 3 View RT INDICATIONS: RIGHT FOOT PAIN TECHNIQUE: 3 views of the foot were acquired. COMPARISON: None FINDINGS: Bones: No fractures or dislocations. Degenerative changes of the interphalangeal joints. No suspicio us bony lesions. Soft tissues: No tibiotalar joint effusion. Achilles tendon appears normal. IMPRESSION: Mild degenerative changes of the interphalangeal joint, otherwise no acute or significan t abnormality of the foot. Reviewed by: Nolberto Oseguera on 11/13/2021 5:05 PM PDT Approved by: Nolberto Oseguera on 11/13/2021 5:05 PM PDT Station ID: [id number]
== END 2021-11-13 15:06 | disposition home or self-care (01) ==
LOC: DI 15:05
PROVIDERS: ATTEND Podiatrist
DX: M19.071 Primary osteoarthritis, right ankle and foot (principal)

== ENCOUNTER 2021-12-09 14:41 | Outpatient (CLI) | payer MEDICARE, BC | END 2021-12-09 14:42 | disposition short-term general hospital (02) | LOC: EMS 14:41 | DX: R60.0 Localized edema (principal); R53.83 Other fatigue; R07.89 Other chest pain; F41.9 Anxiety disorder, unspecified | CPT/HCPCS: A0425; A0427 ==

== ENCOUNTER 2022-06-11 14:15 | Emergency (ER) | payer MEDICARE, BC ==
[2022-06-11 14:35] VITALS: BP 151/88
--- NOTE | 2022-06-11 14:52 | ED Physician Documentation ---
PD HPI UPPER EXT INJURY - Stated complaint Stated Complaint: LT HAND LAC - Chief complaint Chief Complaint: Laceration - History obtained from History obtained from: Patient (She cut her left, nondominant index finger with a knife while cutting something with a new knife at home just prior to arrival. Pain was mild but becoming worse. There is active bleeding noting that she is on Xarelto.) Review of Systems Constitutional: reports: Reviewed and negative Cardiac: reports: Reviewed and negative Respiratory: reports: Reviewed and negative PD PAST MEDICAL HISTORY - Past Medical History Past Medical History: Yes Cardiovascular: Hypertension, Deep vein thrombosis, Pulmonary embolism Respiratory: None Endocrine/Autoimmune: None GI: None : None HEENT: None Psych: None Musculoskeletal: Osteoarthritis, Fibromyalgia Derm: None - Past Surgical History Past Surgical History: Yes Ortho: Hip replacement Cardiovascular: Vascular surgery, AAA - Present Medications Home Medications: Ambulatory Orders Medication Instructions Recorded Confirmed Calcium/Magnesium [Calcium with 1 each PO DAILY 02/02/13 04/15/17 Magnesium Tab] Metoprolol Succinate 25 mg PO BID 02/02/13 04/15/17 Multivitamin [Multivitamins] 1 each PO DAILY 02/02/13 04/15/17 Citalopram [CeleXA] 60 mg PO DAILY 02/08/13 04/15/17 Aspirin [Aspir 81] 81 mg PO DAILY 01/30/15 04/15/17 Amlodipine Besylate 5 mg PO DAILY 12/03/15 04/15/17 lamoTRIgine [Lamictal] 200 mg PO BID 12/03/15 04/15/17 ALPRAZolam [Alprazolam] 0.25 mg PO DAILY 04/15/17 04/15/17 Oxycodone HCl/Acetaminophen 1 each PO Q6H PRN #20 tablet 04/15/17 [Percocet 5-325 mg Tablet] dexAMETHasone [Decadron] 4 mg PO DAILY #5 tablet 04/15/17 Bacitracin Zinc Oint 1 applic TOP BID #1 each 06/11/22 HYDROcod/ACETAM 5/325 [[place] 5/325] 1 - 2 tab PO Q6H PRN #15 tablet 06/11/22 - Allergies Allergies/Adverse Reactions: Allergies Allergy/AdvReac Type Severity Reaction Status Date / Time gluten Allergy Intermediate GI Verified 04/15/17 18:04 tomato [Tomato] Allergy Intermediate GI Verified 04/15/17 18:04 zolpidem tartrate * AdvReac Mild too Verified 04/15/17 18:04 [From Ambien] sleepy/groggy EGGPLANT Allergy Intermediate GI Uncoded 04/15/17 17:15 - Social History Does the pt smoke?: No Smoking Status: Never smoker Does the pt drink ETOH?: Yes Does the pt have substance abuse?: No - Immunizations Immunizations are current?: Yes - POLST Patient has POLST: No PD ED PE NORMAL - Vitals Vital signs reviewed: Yes - General General: Alert and oriented X 3, No acute distress - Derm Derm: Normal color, Warm and dry - Extremities Extremities: Other (.There is a complete circular laceration of the pulp of the left index finger the laceration is about 3 cm in circumference. The skin is in place over it, completely detached but thick enough that what I would expect an autograft to take.) - Neuro Neuro: Alert and oriented X 3, Normal speech Results - Vitals Vitals: Vital Signs - 24 hr 06/11/22 14:30 Temperature 36.6 C Heart Rate 77 Blood Pressure 151/88 H O2 Saturation 99 Oxygen O2 Source Room air Procedures - Laceration (location) Left second finger Length in cm: 3 Wound type: Into subcut fat Anesthesia: Lidocaine 1% Wound preparation: Betadine, Irrigated copiously NS Skin layer closure: Nylon, Size #-0 - enter number (4-0), Sutures - enter # (11), Other (The skin was tacked back down as an autograft. No further bleeding.) Other: Patient tolerated well, No complications, Tetanus UTD Departure - Departure Disposition: 01 Home, Self Care Clinical Impression: Finger laceration Condition: Good Record reviewed to determine appropriate education?: Yes Instructions: ED Laceration Hand Prescriptions: Bacitracin Zinc Oint 1 applic TOP BID #1 each HYDROcod/ACETAM 5/325 [[place]ane 5/325] 1 - 2 tab PO Q6H PRN #15 tablet PRN Reason: Pain Comments: For wound care you can remove the dressing once a day and wash simply with soap and water. Then apply the antibiotic ointment and a fingertip bandage. Then the metal foam finger splint for protection. I sent your prescriptions electronically to [facility] in [place]. Come back for any signs of infection which would include: Redness, swelling, drainage, increased pain, or fevers. You can wash it soap and water. Keep it covered and moist with bacitracin ointment which is available over the counter; avoid neosporin. Follow-up with your physician in 14 days for suture removal. I am prescribing a short course of narcotic pain medication for you. These are potentially dangerous and addictive medications that should be used carefully. These medications may constipate you. Take an yezq-nvv-nbhjxso stool softener (docusate) twice daily with plenty of water while taking these medications. If you go 24 hours without a bowel movement, take sxxp-gtl-mtkcuev miralax, per package instructions. Do not drink or drive while taking these medications. If you received narcotic or sedating medications while in the emergency department, do not drive for 24 hours. Store this medication in a safe, secure place and out of reach of children. It is a violation of federal law to give or sell this medication to another person or to use in a manner other than prescribed. The ED will not refill narcotic prescriptions, including prescriptions lost or stolen. To dispose of unwanted medications: 1. [facility] at [address] in [place] has a medication drop box. They accept prescription medications (in pill form) Thursday through Thursday 9:00 a.m. to 5:00 p.m. 2. The [facility] [employer] accepts prescription medications (in pill form only) for disposal year round. Call for more information. 3. Contact the [facility] for the next [facility] sponsored prescription drug collection event. , [phone], or [phone]; Note that many narcotic pain relievers also contain Tylenol/acetaminophen. Please ensure that your total dose of acetaminophen from all sources does not exceed 3 g (3000 mg) per day.
--- OUTSIDE RECORDS SUMMARY | 2022-06-11 15:02 | EXTERNAL MEDICAL SUMMARY RPT | Continuity of Care Document ---
:1955 Author Organization [facility] Address [address] [place] [address] Phone Care Team Providers Name Role Phone Unavailable Unavailable Unavailable Fly Ce Doran Unavailable Unavailable Allergies No information. Encounters No information. Functional Status No information. Immunizations No information. Medications date description facility [id number]+0000 furosemide [facility] [place] [id number]+0000 hydrochlorothiazide [facility] [id number]+0000 potassium chloride [facility] [place] [phone]+0000 ONDANSETRON [facility] [place] [phone]+0000 rivaroxaban [facility] [place] [id number]+0000 rivaroxaban [facility] [place] [id number]+0000 hydrochlorothiazide [facility] [place] [id number]+0000 trazodone [facility] [place] [id number]+0000 furosemide [facility] [place] [id number]+0000 potassium chloride [facility] [place] [id number]+0000 furosemide [facility] [place] [phone]+0000 hydrochlorothiazide [facility] [id number]+0000 hydrochlorothiazide [facility] [id number]+0000 rivaroxaban [facility] [place] [phone]+0000 trazodone [facility] [place] [id number]+0000 trazodone [facility] [place] [id number]+0000 potassium chloride [facility] [place] [phone]+0000 potassium chloride [facility] [place] [id number]+0000 rivaroxaban [facility] [place] [phone]+0000 trazodone [facility] [phone]+0000 furosemide [facility] Problems No information. Procedures date description facility +0000 Visit Code Hold [facility] [place] Results/Labs No information. Social History date description facility +0000 Former smoker [facility] [place] Vital Signs date measurement value units +0000 BMI BMI 24.89 kg/m2 [id number]+0000 BP_diastolic BP_diastolic 71 mmHg +0000 BP_systolic BP_systolic 168 mmHg +0000 heart_rate heart_rate 71 /min +0000 height_metric height_metric 168.91 cm +0000 height_standard height_standard 66.5 in [id number]+0000 respiration_rate respiration_rate 15 /min +0000 temperature_metric temperature_metric 36.39 C +0000 temperature_standard temperature_standard 9 7.5 F [id number]+0000 weight_metric weight_metric 70.76 kg +0000 weight_standard weight_standard 156 lb
== END 2022-06-11 15:18 | disposition home or self-care (01) ==
LOC: ED 14:15
DX: S61.211A Laceration without foreign body of left index finger without damage to nail, initial encounter (principal); W26.0XXA Contact with knife, initial encounter; Y92.009 Unspecified place in unspecified non-institutional (private) residence as the place of occurrence of the external cause; I10 Essential (primary) hypertension; Z86.718 Personal history of other venous thrombosis and embolism
CPT/HCPCS: 12002; 99282

== ENCOUNTER 2023-01-27 15:37 | Outpatient (CLI) | payer MEDICARE, BC | END 2023-01-27 23:59 | disposition short-term general hospital (02) | LOC: EMS 15:37 | DX: R07.89 Other chest pain (principal); R06.02 Shortness of breath; R11.0 Nausea | CPT/HCPCS: A0425; A0427 ==

== ENCOUNTER 2023-07-03 14:59 | Outpatient (CLI) | payer MEDICARE, BC | END 2023-07-03 23:59 | disposition short-term general hospital (02) | LOC: EMS 14:59 | DX: I48.91 Unspecified atrial fibrillation (principal) | CPT/HCPCS: A0425; A0429 ==

== ENCOUNTER 2023-09-15 09:28 | Outpatient (CLI) | payer MEDICARE, BC | END 2023-09-15 23:59 | disposition short-term general hospital (02) | LOC: EMS 09:28 | DX: R07.89 Other chest pain (principal); R06.09 Other forms of dyspnea; R42 Dizziness and giddiness | CPT/HCPCS: A0425; A0427 ==

== ENCOUNTER 2023-09-24 21:47 | Outpatient (CLI) | payer MEDICARE, BC | END 2023-09-24 21:48 | disposition EMS.NT | LOC: EMS 21:47 | DX: R11.2 Nausea with vomiting, unspecified (principal); R42 Dizziness and giddiness; I48.91 Unspecified atrial fibrillation; R68.83 Chills (without fever); R53.83 Other fatigue ==

== ENCOUNTER 2023-10-23 21:46 | Outpatient (CLI) | payer MEDICARE, BC | END 2023-10-23 23:59 | disposition short-term general hospital (02) | LOC: EMS 21:46 | DX: R07.9 Chest pain, unspecified (principal); R06.09 Other forms of dyspnea; R11.0 Nausea; I48.91 Unspecified atrial fibrillation | CPT/HCPCS: A0425; A0427 ==

== ENCOUNTER 2023-10-30 15:24 | Outpatient (CLI) | payer MEDICARE, BC | END 2023-10-30 23:59 | disposition short-term general hospital (02) | LOC: EMS 15:24 | DX: R51.9 Headache, unspecified (principal); R22.0 Localized swelling, mass and lump, head; W01.10XA Fall on same level from slipping, tripping and stumbling with subsequent striking against unspecified object, initial encounter; Y93.H2 Activity, gardening and landscaping; Y92.017 Garden or yard in single-family (private) house as the place of occurrence of the external cause; R07.9 Chest pain, unspecified; R11.0 Nausea; Z79.82 Long term (current) use of aspirin | CPT/HCPCS: A0425; A0429 ==

== ENCOUNTER 2023-11-03 08:24 | Outpatient (CLI) | payer MEDICARE, BC | END 2023-11-03 23:59 | disposition EMS.NT | LOC: EMS 08:24 | DX: Z03.89 Encounter for observation for other suspected diseases and conditions ruled out (principal) ==

== ENCOUNTER 2023-11-05 21:01 | Outpatient (CLI) | payer MEDICARE, BC | END 2023-11-05 21:02 | disposition short-term general hospital (02) | LOC: EMS 21:01 | DX: R07.9 Chest pain, unspecified (principal); F41.9 Anxiety disorder, unspecified | CPT/HCPCS: A0425; A0429 ==

== ENCOUNTER 2023-12-30 09:54 | Outpatient (CLI) | payer MEDICARE, BC | END 2023-12-30 23:59 | disposition critical access hospital (66) | LOC: EMS 09:54 | DX: R04.0 Epistaxis (principal) | CPT/HCPCS: A0425; A0429 ==

== ENCOUNTER 2023-12-30 10:36 | Emergency (ER) | payer MEDICARE, BC ==
--- NOTE | 2023-12-30 10:36 | ED Physician Documentation ---
History of Present Illness - Stated complaint Stated Complaint: NOSE BLEED - History obtained from History obtained from: Patient - Additonal information Additional information: She has a history of A-fib and CHF and recurrent nosebleeds. Because of the nosebleed she actually self discontinued Eliquis about 2 months ago. She developed a nosebleed that has been profuse and resistant Afrin and nasal clamping since 230 this morning. She is quite anxious. PD PAST MEDICAL HISTORY - Present Medications Home Medications: Ambulatory Orders Medication Instructions Recorded Confirmed Calcium/Magnesium [Calcium with 1 each PO DAILY 02/02/13 12/30/23 Magnesium Tab] Metoprolol Succinate 50 mg PO BID 02/02/13 12/30/23 Multivitamin [Multivitamins] 1 each PO DAILY 02/02/13 12/30/23 Citalopram [CeleXA] 40 mg PO DAILY 02/08/13 12/30/23 Aspirin [Aspir 81] 81 mg PO DAILY 01/30/15 12/30/23 lamoTRIgine [Lamictal] 50 mg PO BID 12/03/15 12/30/23 ALPRAZolam [Alprazolam] 0.25 mg PO DAILY 04/15/17 12/30/23 Bacitracin Zinc Oint 1 applic TOP BID #1 each 06/11/22 12/30/23 Atorvastatin Calcium [Lipitor] 80 mg PO DAILY 12/30/23 12/30/23 Furosemide [Lasix] 40 mg PO DAILY 12/30/23 12/30/23 Gabapentin [Neurontin] 300 mg PO PRN PRN 12/30/23 12/30/23 HYDROcod/ACETAM 5/325 [[place] 5/325] 1 - 2 tab PO Q6H PRN #7 tablet 12/30/23 Lasmiditan Succinate [Reyvow] 50 mg PO PRN PRN 12/30/23 12/30/23 Lidocaine Jelly 2% [Glydo] 2 ml TD QID PRN #60 gm 12/30/23 Promethazine [Phenergan] 25 mg PO Q6H PRN 12/30/23 12/30/23 Spironolactone [Aldactone] 25 mg PO DAILY 12/30/23 12/30/23 busPIRone [Buspar] 15 mg PO BID 12/30/23 12/30/23 traZODone [Desyrel] 50 mg PO HS 12/30/23 12/30/23 - Allergies Allergies/Adverse Reactions: Allergies Allergy/AdvReac Type Severity Reaction Status Date / Time gluten Allergy Intermediate GI Verified 12/30/23 10:43 tomato [Tomato] Allergy Intermediate GI Verified 12/30/23 10:43 zolpidem tartrate * AdvReac Mild too Verified 12/30/23 10:43 [From Ambien] sleepy/groggy EGGPLANT Allergy Intermediate GI Uncoded 12/30/23 10:43 PD ED PE NORMAL - Vitals Vital signs reviewed: Yes - General General: Alert and oriented X 3, No acute distress - HEENT HEENT: Other (On arrival she is wearing a nasal clamp with no active bleeding. I will wait to take it down until have gathered supplies.) - Neuro Neuro: Alert and oriented X 3 Results - Vitals Vitals: Vital Signs - 24 hr 12/30/23 12/30/23 10:37 12:02 Temperature 36.4 C L Heart Rate 56 L 63 Respiratory 16 17 Rate Blood Pressure 136/78 H 124/64 O2 Saturation 95 95 Oxygen O2 Source Room air Procedures - Epistaxis - Minor Site: Right, Anterior Preparation: Clots removed, Afrin, Lidocaine Treatment: Silver Nitrate, Anterior rhinorocket (First tried silver nitrate, but the area of bleeding was just kind of broad and raw and she still kept bleeding so an anterior Rhino Rocket was inserted.), Packing inserted Departure - Departure Disposition: 01 Home, Self Care Clinical Impression: Epistaxis Condition: Good Record reviewed to determine appropriate education?: Yes Instructions: ED Nasal Packing Anterior Removable Prescriptions: Lidocaine Jelly 2% [Glydo] 2 ml TD QID PRN #60 gm PRN Reason: skin pain HYDROcod/ACETAM 5/325 [[place] 5/325] 1 - 2 tab PO Q6H PRN #7 tablet PRN Reason: Pain Comments: I sent your prescriptions electronically to the [facility] in [place]. Follow-up with your doctor or return here in approximately 5 days for packing removal. Sooner for new or worsening symptoms. I am prescribing a short course of narcotic pain medication for you. These are potentially dangerous and addictive medications that should be used carefully. These medications may constipate you. Take an uyln-ouj-qgyixsd stool softener (docusate) twice daily with plenty of water while taking these medications. If you go 24 hours without a bowel movement, take qwvg-rfq-incobja miralax, per package instructions. Do not drink or drive while taking these medications. If you received narcotic or sedating medications while in the emergency department, do not drive for 24 hours. Store this medication in a safe, secure place and out of reach of children. It is a violation of federal law to give or sell this medication to another person or to use in a manner other than prescribed. The ED will not refill narcotic prescriptions, including prescriptions lost or stolen. To dispose of unwanted medications: 1. [facility] provides a [facility] box for medication in pill form only (no liquids) 8:00 am to 4:30 p.m. Thursday-Thursday in the lobby of the [facility] [place], [address] [place] [address]. Empty pills into ziplock bag before disposal. Call [phone] for information. 2.[employer] is a free service available to all [facility] residents. Go to [email or web address] Note that many narcotic pain relievers also contain Tylenol/acetaminophen. Please ensure that your total dose of acetaminophen from all sources does not exceed 3 g (3000 mg) per day.
[2023-12-30 10:47] VITALS: O2SAT 95
[2023-12-30] MEDS: OXYMETAZOLINE HCL 100 SPRAYS BOTTLE NAS STA (10:56)
[2023-12-30] MEDS: SILVER NITRATE APPLICATOR TOP STA (10:57)
[2023-12-30] MEDS: LIDOCAINE 2%-EPI 1:100000 20 ML MDV TOP STA (10:57)
[2023-12-30] MEDS: diazePAM INJ 5 MG/ML SYRINGE IM STA (10:58)
[2023-12-30 13:21] VITALS: BP 114/61
== END 2023-12-30 13:13 | disposition home or self-care (01) ==
LOC: EDUNIT# → ED 10:36
DX: R04.0 Epistaxis (principal); I48.91 Unspecified atrial fibrillation; I50.9 Heart failure, unspecified; Z79.899 Other long term (current) drug therapy; Z79.82 Long term (current) use of aspirin
CPT/HCPCS: 30901; 99283

== ENCOUNTER 2024-04-12 09:55 | Outpatient (CLI) | payer MEDICARE, BC ==
--- NOTE | 2024-04-12 11:05 | XRAY Report ---
PROCEDURE: Cervical Spine 4-5V INDICATIONS: C5 FX TECHNIQUE: 7 views of the cervical spine were acquired. COMPARISON: 10/06/2017 FINDINGS: Bones: Generalized decreased osseous mineralization present. Disc space narrowing and hypertrophic f acet joints noted particularly lower cervical spine. Grade 1 degenerative anterior spinal listhesis n oted at this C4-5 and to degenerative anterior spondylolisthesis at C7-T1. Approximately 3 mm of translation is noted between flexion and extension at C7-T1. Soft tissues: Prevertebral soft tissues are normal in thickness. Aortic stent graft in the midline s ternotomy wires noted IMPRESSION: Degenerative disc disease and arthropathy associated with grade 2 anterior spondylolisthesis at C7-T1 with associated instability on flexion/extension. Reviewed by: Malik Colon MD on 04/12/2024 10:03 AM [place] Approved by: Malik Colon MD on 04/12/2024 10:03 AM [place] Station ID: [id number]
== END 2024-04-12 09:56 | disposition home or self-care (01) ==
LOC: DI 09:55
PROVIDERS: ATTEND Nurse Practitioner Family
DX: S12.490A Other displaced fracture of fifth cervical vertebra, initial encounter for closed fracture (principal); M50.33 Other cervical disc degeneration, cervicothoracic region; M43.13 Spondylolisthesis, cervicothoracic region

== ENCOUNTER 2024-05-07 12:44 | Outpatient (CLI) | payer MEDICARE, BC | END 2024-05-07 23:59 | disposition short-term general hospital (02) | LOC: EMS 12:44 | DX: R07.9 Chest pain, unspecified (principal); R11.0 Nausea; R06.09 Other forms of dyspnea; R23.2 Flushing | CPT/HCPCS: A0425; A0427 ==